=== PATIENT | female | born 1985 | race Caucasian/White ===

== ENCOUNTER 2017-09-12 00:25 | Emergency (ER) | payer SELFPAY ==
[2017-09-12] MEDS ORDERED: CLINDAMYCIN 150 MG CAP PO ONE (00:48)
--- NOTE | 2017-09-12 00:50 | Emergency Department Record ---
History of Present Illness - General Chief complaint: Dental Stated complaint: DENTAL PAIN Time Seen by Provider: 09/12/17 00:36 Source: Patient Mode of Arrival: Ambulatory Limitations: No limitations - History of Present Illness Initial comments: The patient is here due to L lower molar dental pain for one day. She broke a filling 2 days ago and now is having pain. The patient does have Tylenol and Motrin for pain and does have a Dentist Appointment in 4 days. She denies any jaw swelling but is having jaw pain. MD complaint: Tooth pain Onset/Timin -: Days(s) Location: L ear Severity: Moderate Severity scale (1-10): 5 Consistency: Constant, Getting worse Improves with: None Worsens with: Eating Context- Dental: Other Context- Ear: Other - Related Data Previous Rx's Medication Instructions Recorded Clindamycin HCl [Cleocin HCl] 300 mg PO QID #28 capsule 09/12/17 Naproxen [Naprosyn] 500 mg PO BID #14 tablet. 09/12/17 Allergies Allergy/AdvReac Type Severity Reaction Status Date / Time lidocaine Allergy SWELLING Verified 09/12/17 00:31 (GENERAL) morphine Allergy ANAPHYLAXIS Verified 09/12/17 00:31 Travel Screening - Travel/Exposure Within Last 30 Days Have you traveled within the last 30 days?: No - Travel Symptoms Symptom Screening: None Review of Systems Constitutional: Denies: Chills, Fever Past Medical History - SOCIAL HISTORY Smoking Status: Never smoker Alcohol Use: Occasional Drug Use: None - RESPIRATORY Hx Respiratory Disorders: No - CARDIOVASCULAR Hx Cardio Disorders: No - NEURO Hx Neuro Disorders: No - GI Hx GI Disorders: No - Hx Genitourinary Disorders: No - ENDOCRINE Hx Endocrine Disorders: No - MUSCULOSKELETAL Hx Musculoskeletal Disorders: No - PSYCH Hx Psych Problems: No - HEMATOLOGY/ONCOLOGY Hx Hematology/Oncology Disorders: No Family Medical History Any Significant Family History?: No Family Hx Comment (NOT TO BE USED IN PLACE OF ITEMS BELOW): DENIES Physical Exam - General General Appearance: Alert, Oriented x3, Cooperative, No acute distress - Head Head exam: Atraumatic, Normocephalic, Normal inspection - Eye Eye exam: Normal appearance, PERRL - ENT ENT exam: Normal exam, Mucous membranes moist, Normal external ear exam, Normal orophraynx, TM's normal bilaterally Teeth exam: Dental tenderness # (17.), Other (There is no gum line swelling or obvious abscess present. There also is no jaw swelling.). negative: Normal inspection Throat exam: Normal inspection. negative: Tonsillar erythema, Tonsillar exudate - Neck Neck exam: Normal inspection. negative: Lymphadenopathy, Tenderness - Respiratory Respiratory exam: Normal lung sounds bilaterally. negative: Respiratory distress Course Vital Signs 09/12/17 00:31 Temperature 98.4 F Pulse Rate [ 76 Pulse Ox Probe] Respiratory 20 Rate Blood Pressure 117/108 [Left Arm] Pulse Ox 100 - Reevaluation(s) Reevaluation #1: I did explain to the patient the need to continue the oral Abx and her home pain medicines. She is to keep her dental appointment for next week. 09/12/17 00:52 Reevaluation #2: The patient eloped from the ED prior to full evaluation. 09/12/17 01:12 Disposition Disposition: Discharge Clinical Impression: Pain, dental Disposition: Against Medical Advice Condition: (2) Stable Instructions: Toothache (ED) Additional Instructions: The patient left the ED prior to full evaluation. Prescriptions: Clindamycin HCl [Cleocin HCl] 300 mg PO QID #28 capsule Naproxen [Naprosyn] 500 mg PO BID #14 tablet.dr Forms: Patient Portal Access Time of Disposition: 00:54 Quality - Quality Measures Quality Measures: N/A - Blood Pressure Screening View Details: Yes Does Patient Have Any of the Following: No Blood Pressure Classification: Hypertensive Reading Systolic Measurement: 117 Diastolic Measurement: 108 Screening for High Blood Pressure: < First Hypertensive BP, F/U Documented > [ [id number]] First Hypertensive Follow-up Interventions: Referral to alternative/primary care provider.
== END 2017-09-12 01:00 | disposition left against medical advice (07) ==
LOC: ER 00:25
DX: K08.89 Other specified disorders of teeth and supporting structures (principal)
CPT/HCPCS: 99282